=== PATIENT | male | born 1960 | race Caucasian/White ===

== ENCOUNTER 2020-06-06 06:52 | Outpatient (CLI) | payer OTHER, SELFPAY ==
--- NOTE | 2020-06-06 07:00 | CT_ITS ---
WS: [id number] LDCT LUNG CANCER SCREENING HISTORY: NICOTINE DEPENDENCE TECHNIQUE: Axial imaging performed from the apices to 1 cm below the costophrenic angles. Coronal and sagittal reformats are submitted with axial MIP series. All CT scans at [facility] use at least one of these dose optimization techniques: automated exposure control; mA and/or kV adjustment per patient size (includes targeted exams where dose is matched to clinical indication); or iterativ e reconstruction. DLP: 54.98 mGy.cm DIvol: 1.58 mGy COMPARISON: 11/28/2014 Diagnostic quality: Satisfactory Lung Nodules: No pulmonary nodule or endobronchial lesions. Lungs: Mild pulmonary hyperexpansion. No pneumonia. Heart: Normal size heart. No pericardial effusion. LEFT subclavian dual lead pacer is evident. Other findings: Very small hiatal hernia. Small mediastinal and hilar lymph nodes. No atherosclerosis aorta. CT/CT lung screening [id number] IMPRESSION: LUNG-RADS: 1-Negative FOLLOW UP: 12 Month: Continue annual screening with LDCT OTHER FINDINGS (S MODIFIER): None.
== END 2020-06-06 06:53 | disposition home or self-care (01) ==
PROVIDERS: PCP Family Medicine; Visit Provider Family Medicine
DX: Z12.2 Encounter for screening for malignant neoplasm of respiratory organs (principal); F17.210 Nicotine dependence, cigarettes, uncomplicated
CPT/HCPCS: G0297

== ENCOUNTER 2021-06-09 07:53 | Outpatient (CLI) | payer OTHER, SELFPAY ==
--- NOTE | 2021-06-09 07:58 | CT_ITS ---
WS: [id number] LDCT LUNG CANCER SCREENING TECHNIQUE: Noncontrast CT of the chest with coronal and sagittal reformatted images. CLINICAL INFORMATION: HX OF TOBACCO USE COMPARISON: CT June 06, 2020 DLP: 56.96 mGy.cm DIvol: 1.[address] scans at [facility] use at least one of these dose optimization techniques: automat ed exposure control; mA and/or kV adjustment per patient size (includes targeted exams where dose is matched to clinical indication); or iterative reconstruction. FINDINGS: Both lungs are well aerated. No acute pulmonary infiltrates. Stable nodule left lower lobe measuring 5 mm unchanged. No mediastinal or hilar lymphadenopathy. Adrenal glands are normal. Normal [employer] n. CT/CT lung screening [id number] IMPRESSION: LUNG-RADS: 2-Benign Appearance or Behavior FOLLOW UP: 12 Month: Continue annual screening with LDCT
== END 2021-06-09 07:54 | disposition home or self-care (01) ==
LOC: RAD 07:56
PROVIDERS: PCP Family Medicine; Visit Provider Family Medicine
DX: Z12.2 Encounter for screening for malignant neoplasm of respiratory organs (principal); Z87.898 Personal history of other specified conditions
CPT/HCPCS: 71271

== ENCOUNTER 2022-07-24 11:44 | Outpatient (CLI) | payer OTHER, SELFPAY ==
--- NOTE | 2022-07-24 | CT_ITS ---
WS: [id number] LDCT LUNG CANCER SCREENING HISTORY: NICOTINE DEPENDENCE TECHNIQUE: Axial imaging performed from the apices to 1 cm below the costophrenic angles. Coronal and sagittal reformats are submitted with axial MIP series. All CT scans at [facility] use at least one of these dose optimization techniques: automated exposure control; mA and/or kV adjustment per patient size (includes targeted exams where dose is matched to clinical indication); or iterativ e reconstruction. DLP: 78.39 mGy.cm DIvol: Mean CTDIvol: 1.60 (mGy) COMPARISON: 06/09/2021 Diagnostic quality: Satisfactory Lung Nodules: No change in the slightly irregular 5 mm nodule LEFT lower lobe, image 249. No signific ant change since 06/06/2020. No endobronchial lesions. Lungs: Mild hyperexpansion. Heart: Normal size heart. Defibrillator wires in the RIGHT heart. No effusion. Other findings: No adenopathy. Normal size aorta. CT/CT lung screening [id number] IMPRESSION: LUNG-RADS: 2-Benign Appearance or Behavior FOLLOW UP: 12 Month: Continue annual screening with LDCT OTHER FINDINGS (S MODIFIER): None.
== END 2022-07-24 11:45 | disposition home or self-care (01) ==
PROVIDERS: PCP Family Medicine; Visit Provider Family Medicine
DX: Z12.2 Encounter for screening for malignant neoplasm of respiratory organs (principal); F17.210 Nicotine dependence, cigarettes, uncomplicated
CPT/HCPCS: 71271

== ENCOUNTER 2023-07-29 08:33 | Outpatient (CLI) | payer OTHER, SELFPAY ==
--- NOTE | 2023-07-29 08:36 | CT_ITS ---
WS: [id number] LDCT LUNG CANCER SCREENING TECHNIQUE: Noncontrast CT of the chest with coronal and sagittal reformatted images. CLINICAL INFORMATION: HX OF TOBACCO USE COMPARISON: 07/24/2022 DLP: 72.90 mGy.cm DIvol: Mean CTDIvol: 1.40 (mGy) All CT scans at [facility] use at least one of these dose optimization techniques: automat ed exposure control; mA and/or kV adjustment per patient size (includes targeted exams where dose is matched to clinical indication); or iterative reconstruction. FINDINGS: Stable 6 mm slightly irregular nodule LEFT lower lobe. No new suspicious pulm parenchymal o pacities. Mild thoracic curve. Mild thoracic kyphosis. Hypertrophic changes thoracic spine. Normal caliber thor acic aorta. Cardiac pacer. No mediastinal or hilar lymphadenopathy. No axillary lymphadenopathy. Adrenal glands are normal. Normal GE junction. IMPRESSION: CT/CT lung screening [id number] LUNG-RADS: 2-Benign Appearance or Behavior FOLLOW UP: 12 Month: Continue annual screening with LDCT
== END 2023-07-29 08:34 | disposition home or self-care (01) ==
LOC: RAD 08:34
PROVIDERS: PCP Family Medicine; Visit Provider Family Medicine
DX: Z12.2 Encounter for screening for malignant neoplasm of respiratory organs (principal); R91.1 Solitary pulmonary nodule; Z87.891 Personal history of nicotine dependence
CPT/HCPCS: 71271

== ENCOUNTER 2025-02-13 06:49 | Outpatient (CLI) | payer OTHER, SELFPAY ==
--- NOTE | 2025-02-13 06:54 | CT_ITS ---
WS: [id number] LDCT LUNG CANCER SCREENING HISTORY: HX OF TOBACCO USE TECHNIQUE: Axial imaging performed from the apices to 1 cm below the costophrenic angles. Coronal and sagittal reformats are submitted with axial MIP series. All CT scans at [facility] use at least one of these dose optimization techniques: automated exposure control; mA and/or kV adjustment per patient size (includes targeted exams where dose is matched to clinical indication); or iterative reconstruction. DLP: 87.29 mGy.cm DIvol: Mean CTDIvol: 1.80 (mGy) COMPARISON: 07/29/2023, 06/06/2020 Diagnostic quality: Limited by breathing motion artifact. Lungs: Marked pulmonary hyperinflation. Slightly spiculated 6 mm nodule at the LEFT lung base is very slightly increased in size since 2020. This was very small in 2020 and considered a micronodule. Thin linear scar or atelectasis RIGHT lung base. No additional mass or nodule. No endobronchial lesions. Heart: Normal size heart with no pericardial effusion.. LEFT subclavian cardiac pacer. Other findings: Minimal atherosclerosis aorta. Mildly dilated pulmonary artery. No pericardial or pleural effusions. Tiny RIGHT adrenal nodule with low Hounsfield units consistent with an adenoma measuring [address]/CT lung screening [id number] IMPRESSION: LUNG-RADS: 3-Probably Benign FOLLOW UP: 6 Month LDCT OTHER FINDINGS (S MODIFIER): None. Recommend 6-month chest CT follow-up for the slightly spiculated nodule at the LEFT lung base.
== END 2025-02-13 06:50 | disposition home or self-care (01) ==
LOC: RAD 06:49
PROVIDERS: PCP Family Medicine; Visit Provider Family Medicine
DX: Z12.2 Encounter for screening for malignant neoplasm of respiratory organs (principal); Z87.891 Personal history of nicotine dependence; J98.4 Other disorders of lung; J98.11 Atelectasis; R91.1 Solitary pulmonary nodule; Z95.0 Presence of cardiac pacemaker; I70.0 Atherosclerosis of aorta; I28.8 Other diseases of pulmonary vessels
CPT/HCPCS: 71271

== ENCOUNTER 2025-05-01 07:01 | Outpatient (CLI) | payer OTHER, SELFPAY ==
[2025-05-01 07:25] VITALS: PULSE 66; RESP 18; O2SAT 97
== END 2025-05-01 07:02 | disposition home or self-care (01) ==
PROVIDERS: PCP Family Medicine; Visit Provider Internal Medicine
DX: J44.9 Chronic obstructive pulmonary disease, unspecified (principal)
CPT/HCPCS: 94060; 94726; 94729; J7613

== ENCOUNTER → 2025-05-22 10:33 | Outpatient (BNVA) | payer OTHER, SELFPAY | PROVIDERS: PCP Family Medicine; Visit Provider Internal Medicine | DX: J44.9 Chronic obstructive pulmonary disease, unspecified (principal); T78.40XA Allergy, unspecified, initial encounter | CPT/HCPCS: 36415; 82103; 85025; 86003 ==

== ENCOUNTER 2025-06-05 09:40 | Outpatient (CLI) | payer OTHER, SELFPAY ==
--- NOTE | 2025-06-05 09:45 | CT_ITS ---
WS: [id number] CT CHEST TECHNIQUE: Noncontrast CT of the chest with coronal and sagittal reformatted images. CLINICAL INFORMATION: Follow up COMPARISON: 02/13/2025 DLP: 479.[address] scans at [facility] use at least one of these dose optimization techniques: automated exposure control; mA and/or kV adjustment per patient size (includes targeted exams where dose is matched to clinical indication); or iterative reconstruction. FINDINGS: Hyperinflation. Spiculated 6 mm nodule the LEFT lung base stable compared to previous. 3 mm nodule RIGHT lower lobe posterior medially this is stable compared to previous. Semisolid groundglass nodule LEFT lower lobe along the fissure also stable compared to previous this measures approximately 5 mm. No new suspicious pulmonary parenchymal normalities. Mild aortic calcification. No mediastinal or hilar lymphadenopathy. No axillary lymphadenopathy. Small RIGHT adrenal adenoma measuring 8 mm. Hypertrophic changes thoracic spine. Tiny esophageal hiatal hernia. CT/CT chest wo con [id number] IMPRESSION: 1. Stable 6 mm slightly spiculated nodule LEFT lower lobe. Recommend continued surveillance with 6-month follow-up. 2. No new suspicious parenchymal abnormalities.
== END 2025-06-05 09:41 | disposition home or self-care (01) ==
LOC: RAD 09:41
PROVIDERS: PCP Family Medicine; Visit Provider Internal Medicine
DX: R91.1 Solitary pulmonary nodule (principal)
CPT/HCPCS: 71250